=== PATIENT | male | born 1995 | race African-American/Black ===

== ENCOUNTER 2019-07-24 22:18 | Emergency (ER) | payer SELFPAY ==
[2019-07-24 22:48] VITALS: BP 125/56; PULSE 65; TEMP 100.9; BMI 25.8
--- NOTE | 2019-07-25 00:51 | PDOC ---
History of Present Illness - General Chief Complaint: Cold Symptoms Stated Complaint: FEVER History Source: Patient Exam Limitations: No Limitations - History of Present Illness Initial Comments: 07/25/19 00:45 Patient is a 23-year-old male with no past medical history here with complaints of a cough x1 week. States initially cough was nonproductive and was sneezing. However yesterday started having a fever with a temperature of 101, today started having chills. He denies any sick contacts. No recent travel. Patient states that his boss told him to come to the emergency room and be evaluated. He has been taking Tylenol for his symptoms last dose was 3 PM. Denies any dysuria, rash, abdominal pain, sore throat, ear pain, diarrhea. PMHX: neg PSOCHX: No vaping, (+) cig 3/day, neg etoh, neg drug FamHX: Noncontributory ALL: NKDA GENERAL/CONSTITUTIONAL: [No fever or chills. No weakness. No weight change.] HEAD, EYES, EARS, NOSE AND THROAT: [No change in vision. No ear pain or dischar ge. No sore throat.] CARDIOVASCULAR: [No chest pain or shortness of breath.] RESPIRATORY: [(+) cough, (-) wheezing, or hemoptysis.] GASTROINTESTINAL: [No nausea, vomiting, diarrhea or constipation. No rectal bleeding.] GENITOURINARY: [No dysuria, frequency, or change in urination.] MUSCULOSKELETAL: [No joint or muscle swelling or pain. No neck or back pain.] SKIN AND BREASTS: [No rash or easy bruising.] NEUROLOGIC: [No headache, vertigo, loss of consciousness, or loss of sensation.] PSYCHIATRIC: [No depression or anxiety.] ENDOCRINE: [No increased thirst. No abnormal weight change.] HEMATOLOGIC/LYMPHATIC: [No anemia, easy bleeding, or history of blood clots.] ALLERGIC/IMMUNOLOGIC: [No hives or skin allergy. No latex allergy.] GENERAL: [The patient is awake, alert, and fully oriented, in no acute distress.] HEAD: [Normal with no signs of trauma.] EYES: [Pupils equal, round and reactive to light, extraocular movements intact, sclera anicteric, conjunctiva clear.] ENT: [Ears normal, nares patent, oropharynx clear without exudates. Moist mucous membranes.] NECK: [Normal range of motion, supple without lymphadenopathy, JVD, or masses.] LUNGS: [Breath sounds equal, clear to auscultation bilaterally. No wheezes, and no crackles.] HEART: [Regular rate and rhythm, normal S1 and S2 without murmur, rub.] ABDOMEN: [Soft, nontender, normoactive bowel sounds. No guarding, no rebound. No masses.] EXTREMITIES: [Normal range of motion, no edema. No clubbing or cyanosis. No cords, erythema, or tenderness.] NEUROLOGICAL: [Cranial nerves II through XII grossly intact. Normal speech, nor mal gait.] PSYCH: [Normal mood, normal affect.] SKIN: [Warm, Dry, normal turgor, no rashes or lesions noted.] Past History - Past Medical History Allergies/Adverse Reactions: Allergies Allergy/AdvReac Type Severity Reaction Status Date / Time No Known Allergies Allergy Verified 07/24/19 22:48 COPD: No - Psycho Social/Smoking Cessation Hx Smoking History: Never smoked Have you smoked in the past 12 months: No Information on smoking cessation initiated: No Hx Alcohol Use: No Drug/Substance Use Hx: No *Physical Exam - Vital Signs Last Vital Signs Temp Pulse Resp BP Pulse Ox 100.9 F H 65 17 125/56 L 100 07/24/19 22:37 07/24/19 22:37 07/24/19 22:37 07/24/19 22:37 07/24/19 22:37 Medical Decision Making - Medical Decision Making 07/25/19 00:45 Patient is a 23-year-old male with no past medical history here with complaints of a cough x1 week. States initially cough was nonproductive and was sneezing. However yesterday started having a fever with a temperature of 101, today started having chills. He denies any sick contacts. No recent travel. Patient states that his boss told him to come to the emergency room and be evaluated. He has been taking Tylenol for his symptoms last dose was 3 PM. Denies any dysuria, rash, abdominal pain, sore throat, ear pain, diarrhea. Symptoms consistent with a viral upper respiratory illness illness Patient refused pain medication or medication for fever. Influenza swab Chest x-ray Reassess 07/25/19 03:19 Reviewed influenza noted to be negative. Chest x-ray no acute infiltrates I discussed the physical exam findings, ancillary test results and final quinn gnoses with the patient. I answered all of the patient's questions. The patient was satisfied with the care received and felt comfortable with the discharge plan and treatment plan. The Patient agrees to follow up with the primary care physician within 24-72 hours. Discharge - Discharge Information Problems reviewed: Yes Clinical Impression/Diagnosis: Fever Qualifiers: Fever type: unspecified Qualified Code(s): R50.9 - Fever, unspecified Condition: Stable Disposition: HOME - Follow up/Referral - Patient Discharge Instructions Patient Printed Discharge Instructions: DI for Viral Upper Respiratory Infection -- Adult Additional Instructions: Your Discharge Instructions: You must call primary care physician within 24 hours to arrange follow-up. Return to the Emergency Department with any new, persistent or worsening symptoms, for fever, chills, SOB, dizziness or any other concerning changes that may occur. - Post Discharge Activity Work/Back to School Note: Back to Work
--- NOTE | 2019-07-25 02:05 | PDOC ---
*Physical Exam - Vital Signs Last Vital Signs Temp Pulse Resp BP Pulse Ox 100.9 F H 65 17 125/56 L 100 07/24/19 22:37 07/24/19 22:37 07/24/19 22:37 07/24/19 22:37 07/24/19 22:37 Medical Decision Making - Medical Decision Making 07/25/19 02:04 Patient seen by the advanced practice provider under my supervision. Ancillary testing reviewed as necessary. I agree with plan as outlined by the advanced practice provider. Discharge - Discharge Information Problems reviewed: Yes Clinical Impression/Diagnosis: Fever Qualifiers: Fever type: unspecified Qualified Code(s): R50.9 - Fever, unspecified Condition: Stable Disposition: HOME - Follow up/Referral - Patient Discharge Instructions Patient Printed Discharge Instructions: DI for Viral Upper Respiratory Infection -- Adult Additional Instructions: Your Discharge Instructions: You must call primary care physician within 24 hours to arrange follow-up. Return to the Emergency Department with any new, persistent or worsening symptoms, for fever, chills, SOB, dizziness or any other concerning changes that may occur. - Post Discharge Activity Work/Back to School Note: Back to Work
== END 2019-07-25 03:55 | disposition home or self-care (01) ==
LOC: JER 22:18
DX: J06.9 Acute upper respiratory infection, unspecified (principal); B97.89 Other viral agents as the cause of diseases classified elsewhere
CPT/HCPCS: 71046-TC-FY; 87804; 99283-25